=== PATIENT | female | born 1980 | race African-American/Black ===

== ENCOUNTER 2017-05-06 12:14 | Emergency (ER) | payer BC, OTHER ==
[~2017-05-06] VITALS: Ht 160 cm; Wt 73.3 kg
[~2017-05-06 12:14] MED LIST: PRENTAB26 PO
[2017-05-06 12:16] VITALS: TEMP 36.8; Ht 160 cm; Wt 73.3 kg
[2017-05-06] MEDS ORDERED: MULT-54 PO (13:44)
--- NOTE | 2017-05-06 13:48 | DIAGNOSTIC IMAGING REPORT ---
R VENOUS DOPP LOWER EXT UNILAT CLINICAL HISTORY: R leg pain/paresthesias - eval possible DVT TECHNIQUE: Venous Doppler COMPARISON STUDY: None FINDINGS: Normal study IMPRESSION: Normal study The above report was generated using voice recognition software. It may contain grammatical, syntax or spelling errors. Electronically signed by: Alexei Patel M.D. 05/06/2017 1:47 PM Dictated Date/Time: 05/06/2017 1:47 PM
[2017-05-06 14:38] VITALS: BP 138/72; PULSE 85; O2SAT 100
--- NOTE | 2017-05-06 19:42 | EMERGENCY ROOM VISIT NOTE ---
History First contact with patient: 12:36 Chief Complaint: OTHER COMPLAINT Stated Complaint: LOWER RIGHT NUMBNESS History of Present Illness The patient is a 36 year old female who presents to the Emergency Room with complaints of numbness and tingling of her right leg. The patient reports that her discomfort started yesterday afternoon. She denies any known injury to the leg. Upon further questioning, the patient reports that she started an exercise class last week. She has been doing a lot of dancing in order to lose weight. The patient reports that she initially had discomfort in her calf, then started to notice discomfort in her Achilles tendon. When she woke up yesterday, she noticed tendons and needles in the leg. The patient denies any prior history of lumbar radiculopathy/sciatica. She currently denies any lower back or buttock pain. The patient denies any prior right ankle injuries. She did experience right foot trauma in 2007, and was seen at [facility]. She rates her discomfort a 3 out of 10. Review of Systems 10 system review was performed and was negative except for pertinent positives and negatives as indicated in history of present illness Past Medical/Surgical History Medical Problems: (1) Gastro-Esophageal Reflux Disease Without Esophagitis (2) Gestational diabetes (3) Migraines Surgical Problems: (1) History of tubal ligation Family History FH: diabetes mellitus FH: hypertension Social History Smoking Status: Never Smoker Alcohol Use: none Marital Status: single Housing Status: lives with family Occupation Status: employed Current/Historical Medications Scheduled Multiple Vitamins W/ Minerals (Womens Daily Formula/Foli), 1 TAB PO DAILY Physical Exam Vital Signs Date Time Temp Pulse Resp B/P (MAP) Pulse Ox O2 Delivery O2 Flow Rate FiO2 05/06/17 14:38 85 18 138/72 100 05/06/17 12:16 36.8 85 18 100 Room Air Physical Exam CONSTITUTIONAL: Healthy and well nourished. Alert and oriented X 3 with positive affect. HEENT: Normocephalic, atraumatic. Pupils equal, round and reactive. NECK: Full active range of motion without discomfort. MUSCULOSKELETAL: Examination shows no tenderness to palpation of the lower lumbar spine, SI joints or right sciatic notch. Negative logroll. Negative straight leg raise. Patient has mild tenderness through the gastroc muscle. Minimal tenderness to the Achilles tendon. No focal tenderness through the posterior tibial or peroneal tendons, dorsal midfoot, metatarsals or phalanges. Negative anterior draw. Pedal pulses are intact. Ankle plantar/dorsiflexion strength is 5 out of 5 and symmetric bilaterally. No antalgic gait. INTEGUMENTARY: No rash or other significant dermatologic conditions noted. NEUROLOGIC: No focal neurologic deficits noted. Right lower extremity and toes are grossly intact. Deep tendon reflexes are 2+ and symmetric bilaterally on my exam. Medical Decision & Procedures ER Provider Diagnostic Interpretation: Venous ultrasound of the right lower extremity is negative for deep vein thrombosis. Radiologist report is as follows: R VENOUS DOPP LOWER EXT UNILAT CLINICAL HISTORY: R leg pain/paresthesias - eval possible DVT TECHNIQUE: Venous Doppler COMPARISON STUDY: None FINDINGS: Normal study IMPRESSION: Normal study ED Course Patient history and physical exam were performed. Nurse's notes were reviewed. Vital signs were reviewed and were normal. Patient history and clinical exam are consistent with paresthesias. Venous ultrasound of right lower extremity was negative for deep vein thrombosis. The patient reports that she has had recent increased activity as part of a weight loss program. Patient did have some preceding discomfort in the leg. I ask went to the patient that she likely has some swelling around the nerves that is causing this temporary paresthesias. The patient was encouraged to intermittently apply ice to the leg. The patient was fitted with crutches, and encouraged to remain limited weightbearing over the next several days. She may alternate ibuprofen and Tylenol as needed for pain. She was encouraged to follow-up with her PCP if symptoms are not improving within the next week. The patient was happy with plan care, voiced understanding of all discharge instructions, and denied any significant pain at the conclusion of my exam. Medical Decision See previous section Medication Reconcilliation Current Medication List: was personally reviewed by me Blood Pressure Screening Patient's blood pressure: Normal blood pressure Impression Primary Impression: Right leg paresthesias Departure Information Dispostion Home / Self-Care Condition GOOD Forms HOME CARE DOCUMENTATION FORM, IMPORTANT VISIT INFORMATION Patient Instructions [employer] Additional Instructions Avoid dancing another such activities until symptoms improve. Use crutches as needed to avoid stress on the right lower extremity. Intermittently apply ice to the leg as instructed. Ibuprofen 800 mg and/or Tylenol 1000 mg every 8 hours. You may also alternate these medications for more effective pain relief: Ibuprofen --4 HRS--> Tylenol --4 HRS--> ibuprofen --4 HRS--> Tylenol .... Follow-up with your family doctor if symptoms are not improving within the next week.
== END 2017-05-06 14:39 | disposition home or self-care (01) ==
LOC: C.EDB 12:15 → C.EDD 14:39
DX: R20.2 Paresthesia of skin (principal); G43.909 Migraine, unspecified, not intractable, without status migrainosus; K21.9 Gastro-esophageal reflux disease without esophagitis; Z83.3 Family history of diabetes mellitus; Z82.49 Family history of ischemic heart disease and other diseases of the circulatory system